=== PATIENT | male | born 1980 | race African-American/Black ===

== ENCOUNTER 2019-05-30 18:02 | Emergency (ER) | payer OTHER, SELFPAY ==
--- NOTE | 2019-05-30 19:14 | ER ---
Nurse's Notes [facility] Name: Luciano Peraza Age: 38 yrs Sex: Male : 1980 Arrival Date: 05/30/2019 Time: 18:06 Bed 25 Private MD: Diagnosis: Sprain of ankle Presentation: 05/30 18:19 Presenting complaint: Patient states: Was stepping off of a curb and twisted R ankle. ph Transition of care: patient was not received from another setting of care. Onset of symptoms was May 30, 2019. Risk Assessment: Do you want to hurt yourself or someone else? Patient reports no desire to harm self or others. Initial Sepsis Screen: Does the patient meet any 2 criteria? No. Patient's initial sepsis screen is negative. Does the patient have a suspected source of infection? No. Patient's initial sepsis screen is negative. Care prior to arrival: None. 18:19 Method Of Arrival: Wheelchair ph 18:19 Acuity: EZE 4 ph Historical: - Allergies: 18:20 No Known Allergies; ph - PMHx: 18:20 None; ph - PSHx: 18:20 bilateral leg surgery; arm sx; ph - Immunization history:: Adult Immunizations unknown. - Social history:: Smoking status: Patient uses tobacco products, smokes one pack cigarettes per day. - Ebola Screening: : No symptoms or risks identified at this time. Screenin:37 Abuse screen: Denies threats or abuse. Denies injuries from another. Nutritional ca1 screening: No deficits noted. Tuberculosis screening: No symptoms or risk factors identified. Fall Risk Fall in past 12 months (25 points). Assessment: 18:37 General: Appears in no apparent distress. comfortable, Behavior is calm, cooperative, ca1 appropriate for age. Pain: Complains of pain in left lateral ankle, left Achilles, left medial ankle and anterior aspect of left ankle Pain currently is 8 out of 10 on a pain scale. Derm: Skin is intact, is healthy with good turgor, Skin is pink, warm \T\ dry. Musculoskeletal: Circulation, motion, and sensation intact. Capillary refill < 3 seconds, Range of motion: limited in left ankle. Musculoskeletal: Swelling present in left lateral ankle. 19:46 Reassessment: Patient appears in no apparent distress at this time. Patient is alert, ca1 oriented x 3, equal unlabored respirations, skin warm/dry/pink. Colten wrap applied on L ankle. Demonstrated proper use of crutches. Vital Signs: 18:20 BP 135 / 96; Pulse 82; Resp 18; Temp 97.8; Pulse Ox 97% on R/A; Weight 120.2 kg; Height ph 6 ft. 0 in. (182.88 cm); Pain 7/10; 18:57 BP 130 / 91; Pulse 75; Resp 16 S; Pulse Ox 98% on R/A; ca1 19:30 BP 130 / 81; Pulse 79; Resp 15 S; Pulse Ox 97% on R/A; ca1 18:20 Body Mass Index 35.94 (120.20 kg, 182.88 cm) ph ED Course: 18:06 Patient arrived in ED. mr 18:15 Wendi Calderon RN is Primary Nurse. ca1 18:18 Pawel Du PA is PHCP. jr8 18:18 Roosevelt Zamora MD is Attending Physician. jr8 18:20 Triage completed. ph 18:21 Arm band placed on Patient placed in an exam room, on a stretcher. ph 18:37 Patient has correct armband on for positive identification. Bed in low position. Call ca1 light in reach. Side rails up X 1. Pulse ox on. NIBP on. Warm blanket given. Ice pack to injury. 18:49 Ankle Left 3 View In Process Unspecified. EDMS 19:13 Stone Monsivais MD is Referral Physician. jr8 19:40 Crutch training done. Colten wrap to left ankle. lt1 19:47 No provider procedures requiring assistance completed. Patient did not have IV access ca1 during this emergency room visit. Administered Medications: No medications were administered Outcome: 19:13 Discharge ordered by . jr8 19:48 Discharged to home ambulatory, with crutches, with significant other. ca1 19:48 Condition: stable 19:48 Discharge instructions given to patient, Instructed on discharge instructions, follow up and referral plans. medication usage, crutch walking, Demonstrated understanding of instructions, follow-up care, medications, crutch walking, Prescriptions given X 1. 19:48 Patient left the ED. ca1 Signatures: Dispatcher [employer] [facility] Vani Patel mr Pawel Du PA PA jr8 Cordelia Das RN RN ph Johana Calderonyl, RN RN ca1 Cruz, Tonya lt1
--- NOTE | 2019-05-30 19:15 | EDPHYS ---
Physician Documentation [facility] Name: Luciano Peraza Age: 38 yrs Sex: Male : 1980 Arrival Date: 05/30/2019 Time: 18:06 Bed 25 Private MD: ED Physician Roosevelt Zamora HPI: 05/30 19:04 This 38 yrs old Black Male presents to ER via Wheelchair with complaints of Ankle jr8 Injury. 19:04 The patient presents with decreased range of motion, pain, swelling, tenderness. The jr8 complaints affect the left ankle. Onset: The symptoms/episode began/occurred acutely, today. Context: The problem was sustained at home, outdoors, resulted from a mis-step by the patient, The mechanism of injury involved inversion of the affected ankle. The patient can partially bear weight on the affected extremity. Associated signs and symptoms: The patient has no apparent associated signs or symptoms. Modifying factors: The symptoms are alleviated by nothing, the symptoms are aggravated by weight bearing, movement. Severity of symptoms: At their worst the symptoms were moderate, in the emergency department the symptoms are unchanged. The patient has not experienced similar symptoms in the past. The patient has not recently seen a physician. Stated that he rolled ankle between the cement and grass. Historical: - Allergies: 18:20 No Known Allergies; ph - PMHx: 18:20 None; ph - PSHx: 18:20 bilateral leg surgery; arm sx; ph - Immunization history:: Adult Immunizations unknown. - Social history:: Smoking status: Patient uses tobacco products, smokes one pack cigarettes per day. - Ebola Screening: : No symptoms or risks identified at this time. ROS: 19:04 Eyes: Negative for injury, pain, redness, and discharge, ENT: Negative for injury, jr8 pain, and discharge, Neck: Negative for injury, pain, and swelling, Cardiovascular: Negative for chest pain, palpitations, and edema, Respiratory: Negative for shortness of breath, cough, wheezing, and pleuritic chest pain, Abdomen/GI: Negative for abdominal pain, nausea, vomiting, diarrhea, and constipation, Back: Negative for injury and pain, Skin: Negative for injury, rash, and discoloration, Neuro: Negative for headache, weakness, numbness, tingling, and seizure. 19:04 MS/extremity: Positive for decreased range of motion, pain, swelling, tenderness, of the left ankle. Exam: 19:12 Eyes: Pupils equal round and reactive to light, extra-ocular motions intact. Lids and jr8 lashes normal. Conjunctiva and sclera are non-icteric and not injected. Cornea within normal limits. Periorbital areas with no swelling, redness, or edema. ENT: Nares patent. No nasal discharge, no septal abnormalities noted. Tympanic membranes are normal and external auditory canals are clear. Oropharynx with no redness, swelling, or masses, exudates, or evidence of obstruction, uvula midline. Mucous membranes moist. Neck: Trachea midline, no thyromegaly or masses palpated, and no cervical lymphadenopathy. Supple, full range of motion without nuchal rigidity, or vertebral point tenderness. No Meningismus. Cardiovascular: Regular rate and rhythm with a normal S1 and S2. No gallops, murmurs, or rubs. Normal PMI, no JVD. No pulse deficits. Respiratory: Lungs have equal breath sounds bilaterally, clear to auscultation and percussion. No rales, rhonchi or wheezes noted. No increased work of breathing, no retractions or nasal flaring. Abdomen/GI: Soft, non-tender, with normal bowel sounds. No distension or tympany. No guarding or rebound. No evidence of tenderness throughout. Back: No spinal tenderness. No costovertebral tenderness. Full range of motion. Skin: Warm, dry with normal turgor. Normal color with no rashes, no lesions, and no evidence of cellulitis. Neuro: Awake and alert, GCS 15, oriented to person, place, time, and situation. Cranial nerves II-XII grossly intact. Motor strength 5/5 in all extremities. Sensory grossly intact. Cerebellar exam normal. Normal gait. 19:12 Musculoskeletal/extremity: Extremities: grossly normal except: noted in the left ankle: pain, swelling, tenderness, lateral malleolus , ROM: full active range of motion, full passive range of motion, limited active range of motion due to pain, limited passive range of motion due to pain, Circulation is intact in all extremities. Sensation intact. Vital Signs: 18:20 BP 135 / 96; Pulse 82; Resp 18; Temp 97.8; Pulse Ox 97% on R/A; Weight 120.2 kg; Height ph 6 ft. 0 in. (182.88 cm); Pain 7/10; 18:57 BP 130 / 91; Pulse 75; Resp 16 S; Pulse Ox 98% on R/A; ca1 19:30 BP 130 / 81; Pulse 79; Resp 15 S; Pulse Ox 97% on R/A; ca1 18:20 Body Mass Index 35.94 (120.20 kg, 182.88 cm) ph Procedures: 19:12 Splinting: Splint applied to left ankle using colten wrap, applied by tech. Examined by jr8 de, post splint application: neurovascular intact, 2+ distal pulses palpable, brisk capillary refill noted, Patient tolerated well. Crutch training provided to patient and/or family. Return demonstration given. MDM: 18:19 Patient medically screened. jr8 19:12 Data reviewed: vital signs, nurses notes, radiologic studies, plain films. Data jr8 interpreted: Pulse oximetry: on room air is 98 %. Interpretation: normal. Counseling: I had a detailed discussion with the patient and/or guardian regarding: the historical points, exam findings, and any diagnostic results supporting the discharge/admit diagnosis, radiology results, the need for outpatient follow up, a orthopedic surgeon, to return to the emergency department if symptoms worsen or persist or if there are any questions or concerns that arise at home. 05/30 18:43 Order name: Ankle Left 3 View EDMS 05/30 19:03 Order name: Crutches; Complete Time: 19:46 jr8 05/30 19:03 Order name: Colten Wrap; Complete Time: 19:46 jr8 Administered Medications: No medications were administered Disposition: 05/31 08:14 Co-signature as Attending Physician, Roosevelt Zamora MD I agree with the assessment and kdr plan of care. Disposition: 05/30/19 19:13 Discharged to Home. Impression: Sprain of ankle. - Condition is Stable. - Discharge Instructions: Ankle Sprain. - Prescriptions for Ibuprofen 800 mg Oral Tablet - take 1 tablet by ORAL route every 12 hours As needed take with food; 20 tablet. - Medication Reconciliation Form, Thank You Letter, Antibiotic Education, Prescription Opioid Use, Work release form form. - Follow up: Stone Monsivais MD; When: 7 - 10 days; Reason: If symptoms return, Recheck today's complaints, Continuance of care, Re-evaluation by your physician. - Problem is new. - Symptoms have improved. Signatures: Dispatcher [employer] [facility] Roosevelt Zamora MD MD kdr Roszak, Josh, PA PA jr8 Cordelia Das, RN RN ph Wendi Calderon RN RN ca1 Corrections: (The following items were deleted from the chart) 05/30 18:43 18:36 Ankle Right 3 View+RAD.RAD.BRZ ordered. [facility] 19:48 19:13 05/30/2019 19:13 Discharged to Home. Impression: Sprain of ankle. Condition is ca1 Stable. Forms are Medication Reconciliation Form, Thank You Letter, Antibiotic Education, Prescription Opioid Use. Follow up: Dr. Stone Monsivais; When: 7 - 10 days; Reason: If symptoms return, Recheck today's complaints, Continuance of care, Re-evaluation by your physician. Problem is new. Symptoms have improved. jr8
--- NOTE | 2019-05-30 20:32 | RAD REPORT ---
EXAM DESCRIPTION: RAD - Ankle Left 3 View - 05/30/2019 6:49 pm CLINICAL HISTORY: Left ankle pain, twisting injury COMPARISON: None. FINDINGS: No fracture, dislocation or periosteal reaction. No joint effusion seen. No joint space na rrowing. Mild lateral soft tissue swelling. IMPRESSION: Mild lateral soft tissue swelling. No fracture.
== END 2019-05-30 19:48 | disposition home or self-care (01) ==
LOC: ER 18:02
DX: S93.402A Sprain of unspecified ligament of left ankle, initial encounter (principal); X58.XXXA Exposure to other specified factors, initial encounter; Y93.01 Activity, walking, marching and hiking; Y92.009 Unspecified place in unspecified non-institutional (private) residence as the place of occurrence of the external cause; F17.210 Nicotine dependence, cigarettes, uncomplicated
CPT/HCPCS: 99284

== ENCOUNTER 2023-08-24 14:40 | Emergency (ER) | payer OTHER ==
--- OUTSIDE RECORDS SUMMARY | 2023-08-24 14:43 | XMS REPORT | Continuity of Care Document ---
:1980 Author Organization [facility] t Address [address] [place] [address] Care Team Providers Name Role Phone Pcp, Patient Does Not Have A Primary Care Physician [phone] Aldo Oliveros MD Attending Clinician Problems This patient has no known problems. Allergies, Adverse Reactions, Alerts Allergy Allergy Status Severity Reaction(s) Onset Inactive Treating Comm ents Source Name Type Date Date Clinician NO KNOWN Drug Active [facility] ALLERGIE Class it of [facility] Social History Social Habit Start Date Stop Date Quantity Comments Source Sex Assigned At [birth year] [facility] 00:00:00 00:00:00 [facility] Branch Smoking Status Start Date Stop Date Source Tobacco smoking consumption [facility] Medications This patient has no known medications. Procedures This patient has no known procedures. Encounters Start End Encounter Admission Attending Care Care Encounter Source Date/Time Date/Time Type Type Clinicians Facility Department ID 2022-06-19 2022-06-19 Emergency X [facility] ERT [id number] [facility] 04:46:00 06:40:00 [facility] 2022-06-19 2022-06-19 Emergency [facility] [id number] [facility] 04:46:00 06:40:00 Aldo RIOS [id number] [facility] [id number] [facility] [id number] [facility] 084 Branch Results This patient has no known results.
[2023-08-24] MEDS ORDERED: HYDROCODONE/APAP 7.5/325 MG TAB ONE (15:31)
[2023-08-24] MEDS ORDERED: LIDOCAINE 1% MPF 5 ML VIAL ONE (15:38)
[2023-08-24] MEDS ORDERED: TDAP (DIPHTH,PERTUSS(ACELL),TET VAC) 0.5 ML VIAL IMVAC ONE (15:38)
[2023-08-24] MEDS ORDERED: SILVER NITRATE 1 APPL TOP ONE (15:57)
--- NOTE | 2023-08-24 16:04 | RAD REPORT ---
EXAM DESCRIPTION: RAD - Hand Right 3 View - 08/24/2023 3:29 pm CLINICAL HISTORY: SMASH INJURY COMPARISON: Hand Right 3 View dated 12/31/2017 TECHNIQUE: Right hand, 3 views. FINDINGS: Healed fracture of the tuft of the fourth digit distal phalanx. No other acute fractures. There is no dislocation or periosteal reaction noted. No foreign body or other soft tissue abnormalit y. IMPRESSION: No acute findings. Chronic changes to fracture fragment at the tuft of the fourth digit distal phalanx.
--- NOTE | 2023-08-24 16:10 | ER ---
Nurse's Notes [facility] Name: Luciano Peraza Age: 42 yrs Sex: Male : 1980 Arrival Date: 08/24/2023 Time: 14:40 Bed 13 Private MD: Diagnosis: Laceration without foreign body of right little finger without damage to nail, initial encounter Presentation: 08/24 14:54 Chief complaint: Patient states: 3 inch timber smashed his R hand 5th digit while ll1 making a fence 20 min [employer]. Bleeding controlled. Coronavirus screen: Client denies travel out of the [place] in the last 14 days. At this time, the client does not indicate any symptoms associated with coronavirus-19. Ebola Screen: Patient denies travel to an Ebola-affected area in the 21 days before illness onset. Initial Sepsis Screen: Does the patient meet any 2 criteria? No. Patient's initial sepsis screen is negative. Does the patient have a suspected source of infection? Yes: Skin breakdown/wound Bone or joint infection. Risk Assessment: Do you want to hurt yourself or someone else? Patient reports no desire to harm self or others. Onset of symptoms was August 24, 2023. 14:54 Method Of Arrival: Ambulatory ll1 14:54 Acuity: EZE 3 ll1 Triage Assessment: 14:55 General: Appears uncomfortable, Behavior is calm, cooperative, appropriate for age. ll1 Pain: Complains of pain in left hand Pain currently is 8 out of 10 on a pain scale. Quality of pain is described as aching, throbbing. Derm: 2 lacerations L hand 5th digit. Musculoskeletal: Swelling present in L hand 5th digit. Injury Description: Crush injury. Historical: - Allergies: 14:53 tramadol; ll1 - PMHx: 14:53 None; ll1 - PSHx: 14:53 L knee SX; R leg FX SX; ll1 Historical Immunization: - Administered Vaccines 15:30 Tetanus-Diphtheria Toxoid IM Adult 0.5 ml kc6 Binder Layer: cicayda; Exp: Sat Mar 15 2025; Lot #: [id number]; Series: 1 of 1; Patient Consent: Obtained; Date/Time: ; Source Name: Luciano Peraza; Source Relationship: Self; Address Information: [address] [place] [id number]; ; Education: Provided; VIS Presented Date: ; VIS Publication: Tetanus/Diphtheria (Td) Vaccine VIS 01/31/2017 (historic); Vaccine Funding Eligibility: C eligibility not determined/unknown 15:22 Hydrocodone-Acetaminophen PO (7.5 mg-325 mg) 1 tabs [facility] - Immunization history:: Adult Immunizations up to date. - Social history:: Smoking status: Patient reports the use of cigarette tobacco products, smokes one-half pack cigarettes per day. Screenin:00 [facility] ED Fall Risk Assessment (Adult) History of falling in the last 3 months, [facility] including since admission No falls in past 3 months (0 pts) Confusion or Disorientation No (0 pts) Intoxicated or Sedated No (0 pts) Impaired Gait No (0 pts) Mobility Assist Device Used No (0 pt) Altered Elimination No (0 pt) Score/Fall Risk Level 0 - 2 = Low Risk. Abuse screen: Denies threats or abuse. Denies injuries from another. Nutritional screening: No deficits noted. Tuberculosis screening: No symptoms or risk factors identified. Assessment: 15:00 Reassessment: please see triage assessment. [facility] 16:00 Reassessment: Patient appears in no apparent distress at this time. No changes from [facility] previously documented assessment. Patient and/or family updated on plan of care and expected duration. Pain level reassessed. Patient is alert, oriented x 3, equal unlabored respirations, skin warm/dry/pink. Vital Signs: 14:54 BP 156 / 106; Pulse 83; Resp 17; Temp 98.5; Pulse Ox 96% on R/A; Weight 109.77 kg; ll1 Height 6 ft. 2 in. ; Pain 8/10; 14:54 Body Mass Index 31.07 (109.77 kg, 187.96 cm) ll1 14:54 Pain Scale: Adult ll1 ED Course: 14:42 Patient arrived in ED. im 14:42 [facility] 7 14:42 Modesto Stephens MD is Attending Physician. 7 14:53 Arm band placed on Patient placed in an exam room, on a stretcher. ll1 14:55 Triage completed. ll1 14:56 Alycia Sheikh, RN is Primary Nurse. kc6 15:00 Patient has correct armband on for positive identification. Bed in low position. Call kc6 light in reach. Side rails up X 1. Client placed on continuous cardiac and pulse oximetry monitoring. NIBP monitoring applied. 15:31 XRAY Hand RIGHT 3 View In Process Unspecified. EDMS 16:23 No provider procedures requiring assistance completed. Patient did not have IV access kc6 during this emergency room visit. Administered Medications: 15:22 Drug: Hydrocodone-Acetaminophen PO (7.5 mg-325 mg) 1 tabs PO once Route: PO; kc6 15:40 Follow up: Response: No adverse reaction kc6 15:30 Drug: Tetanus-Diphtheria Toxoid IM Adult 0.5 ml IM once; Provide Vaccine Information kc6 Statement (VIS). {Binder Layer: cicayda; Exp: Sat Mar 15 2025; Lot #: [id number]; Series: ; Patient Consent: Obtained; Date/Time: ; Source Name: Luciano Peraza; Source Relationship: Self; Address Information: [address] [place] [address]; ; Education: Provided; VIS Presented Date: ; VIS Publication: Tetanus/Diphtheria (Td) Vaccine VIS 01/31/2017 (historic); Vaccine Funding Eligibility: [facility] eligibility not determined/unknown} Route: IM; Site: left deltoid; 15:40 Follow up: Response: No adverse reaction kc6 Medication: 16:24 VIS not applicable for this client. kc6 Outcome: 16:10 Discharge ordered by MD. dotson 16:23 Discharged to home ambulatory, kc6 16:23 Condition: improved 16:23 Discharge instructions given to patient, Instructed on discharge instructions, follow up and referral plans. medication usage, Demonstrated understanding of instructions, follow-up care, medications, Prescriptions given X 2, 16:24 Patient left the ED. kc6 Signatures: Dispatcher [employer] EDMS Marciano Siu RN RN ll1 Luz Escalante, APARTMENT COORDINATOR APARTMENT COORDINATOR Alycia Irene RN RN kc6 Racheal Lin im
--- NOTE | 2023-08-24 16:11 | EDPHYS ---
Physician Documentation [facility] Name: Luciano Peraza Age: 42 yrs Sex: Male : 1980 Arrival Date: 08/24/2023 Time: 14:40 Bed 13 Private MD: ED Physician Modesto Stephens HPI: 08/24 14:54 This 42 yrs old Black Male presents to ER via Ambulatory with complaints of Finger jh7 Injury - right hand pinky. 14:54 Mechanism of injury: Crush injury: from being trapped between fence and a post. jh7 Associated injuries: The patient sustained right hand, laceration, 1 cm(s). Onset: The symptoms/episode began/occurred acutely. 42-year-old male presents to the ER with 2 small lacerations to the right fifth digit. Reports that his finger got caught between a fence and a post, and the edge of the post cut his finger. Finger is actively bleeding.. Historical: - Allergies: 14:53 tramadol; ll1 - PMHx: 14:53 None; ll1 - PSHx: 14:53 L knee SX; R leg FX SX; ll1 - Immunization history:: Adult Immunizations up to date. - Social history:: Smoking status: Patient reports the use of cigarette tobacco products, smokes one-half pack cigarettes per day. ROS: 14:54 Constitutional: Negative for fever, chills, and weight loss, Eyes: Negative for injury, jh7 pain, redness, and discharge, Neck: Negative for injury, pain, and swelling, Cardiovascular: Negative for chest pain, palpitations, and edema, Respiratory: Negative for shortness of breath, cough, wheezing, and pleuritic chest pain, Abdomen/GI: Negative for abdominal pain, nausea, vomiting, diarrhea, and constipation, Back: Negative for injury and pain, Neuro: Negative for headache, weakness, numbness, tingling, and seizure, 14:54 MS/extremity: Positive for laceration, pain, of the right 5th digit, 14:54 Skin: Positive for laceration(s), of the right 5th digit, 14:54 All other systems are negative, Exam: 14:54 Constitutional: This is a well developed, well nourished patient who is awake, alert, jh7 and in no acute distress. Head/Face: Normocephalic, atraumatic. Neck: Trachea midline, no thyromegaly or masses palpated, and no cervical lymphadenopathy. Supple, full range of motion without nuchal rigidity, or vertebral point tenderness. No Meningismus. Cardiovascular: Regular rate and rhythm with a normal S1 and S2. No gallops, murmurs, or rubs. Normal PMI, no JVD. No pulse deficits. Respiratory: Lungs have equal breath sounds bilaterally, clear to auscultation and percussion. No rales, rhonchi or wheezes noted. No increased work of breathing, no retractions or nasal flaring. Abdomen/GI: Soft, non-tender, with normal bowel sounds. No distension or tympany. No guarding or rebound. No evidence of tenderness throughout. Back: No spinal tenderness. No costovertebral tenderness. Full range of motion. Neuro: Awake and alert, GCS 15, oriented to person, place, time, and situation. Motor strength 5/5 in all extremities. Sensory grossly intact. Normal gait. 14:54 Musculoskeletal/extremity: Extremities: noted in the Right fifth digit: laceration, swelling, ROM: limited active range of motion, in the Right fifth digit secondary to swelling, limited active range of motion due to pain, in the Right fifth digit, Circulation is intact in all extremities. Pulses: are normal with no appreciated deficits, Perfusion: the extremity is normally perfused throughout, pink, warm, with brisk capillary refill, Sensation intact. 14:54 Skin: injury, laceration(s), the wound is approximately 0.75 cm(s), of the Medial aspect of right fifth digit, the second wound is approximately 0.5 cm(s), of the Lateral aspect of right fifth digit, Vital Signs: 14:54 BP 156 / 106; Pulse 83; Resp 17; Temp 98.5; Pulse Ox 96% on R/A; Weight 109.77 kg; ll1 Height 6 ft. 2 in. ; Pain 8/10; 14:54 Body Mass Index 31.07 (109.77 kg, 187.96 cm) ll1 14:54 Pain Scale: Adult ll1 MDM: 14:42 Patient medically screened. [facility] 16:10 Data reviewed: vital signs, nurses notes, radiologic studies, plain films. I considered [facility] the following discharge prescriptions or medication management in the emergency department Medications were administered in the Emergency Department. See MAR. Counseling: I had a detailed discussion with the patient and/or guardian regarding the historical points, exam findings, and any diagnostic results supporting the discharge/admit diagnosis, to return to the emergency department if symptoms worsen or persist or if there are any questions or concerns that arise at home. Response to treatment: the patient's symptoms have mildly improved after treatment. ED course: Due to tension of the skin around the lacerations as well as swelling, sutures were unable to be applied. Bleeding was stopped with silver nitrate sticks and a pressure dressing. Advised the patient to wear the dressing for 48 hours and may change daily after that. His tetanus was updated and Keflex was prescribed for prophylaxis.. 08/24 14:50 Order name: XRAY Hand RIGHT 3 View; Complete Time: 16:05 [facility] 08/24 14:50 Order name: Dressing - Wound; Complete Time: 14:59 7 08/24 14:50 Order name: Gloves, Sterile; Complete Time: 14:59 7 08/24 14:50 Order name: Prolene, Sutures: 5'0; Complete Time: 14:59 7 08/24 14:50 Order name: Setup Suture Tray; Complete Time: 14:59 7 Administered Medications: 15:22 Drug: Hydrocodone-Acetaminophen PO (7.5 mg-325 mg) 1 tabs PO once Route: PO; 6 15:40 Follow up: Response: No adverse reaction kc6 15:30 Drug: Tetanus-Diphtheria Toxoid IM Adult 0.5 ml IM once; Provide Vaccine Information kc6 Statement (VIS). {Medical Diagnostic Radiographer: [employer]; Exp: Sat Mar 15 2025; Lot #: [id number]; Series: 1 of 1; Patient Consent: Obtained; Date/Time: ; Source Name: Luciano Peraza; Source Relationship: Self; Address Information: [address] [place] [id number]; ; Education: Provided; VIS Presented Date: ; VIS Publication: Tetanus/Diphtheria (Td) Vaccine VIS 01/31/2017 (historic); Vaccine Funding Eligibility: [facility] eligibility not determined/unknown} Route: IM; Site: left deltoid; 15:40 Follow up: Response: No adverse reaction kc6 Disposition: 17:59 Co-signature as Attending Physician, Modesto Stephens MD I reviewed the patient's care rt provided by the Advanced Practice Provider and agree with the diagnosis and treatment plan. Disposition Summary: 08/24/23 16:10 Discharge Ordered Notes: Location: Home [facility] Problem: new [facility] Symptoms: have improved [facility] Condition: Stable [facility] Diagnosis - Laceration without foreign body of right little finger without damage to nail, 7 initial encounter Followup: [facility] - With: Private Physician - When: 2 - 3 days - Reason: Recheck today's complaints Discharge Instructions: - Discharge Summary Sheet [facility] - Nonsutured Laceration Care [facility] Forms: - Medication Reconciliation Form [facility] - Thank You Letter [facility] - Antibiotic Education [facility] - Patient Portal Instructions [facility] - Leadership Thank You Letter [facility] Prescriptions: - Cephalexin 500 mg Oral Capsule - take 1 capsule ORAL route every 12 hours for 10 days; 20 capsule; Refills: 0, [facility] Product Selection Permitted - Ibuprofen 800 mg Oral Tablet - take 1 tablet ORAL route every 8 hours As needed take with food; 30 tablet; [facility] Refills: 0, Product Selection Permitted Signatures: Dispatcher [employer] Marciano Arias, RN RN ll1 Luz Escalante, 911 EMERGENCY SERVICES DISPATCHER 911 EMERGENCY SERVICES DISPATCHER 7 Alycia Sheikh RN RN kc6 Modesto Stephens MD MD rt
[2023-08-24 16:39] VITALS: BP 156/106; TEMP 98.5; O2SAT 96
== END 2023-08-24 16:24 | disposition home or self-care (01) ==
LOC: ER 14:40
DX: S61.216A Laceration without foreign body of right little finger without damage to nail, initial encounter (principal); F17.210 Nicotine dependence, cigarettes, uncomplicated; Z88.5 Allergy status to narcotic agent; Z23 Encounter for immunization
CPT/HCPCS: 73130; 90471; 99284; J2001